=== PATIENT | male | born 1990 | race Two or more races ===

== ENCOUNTER 2019-11-16 16:58 | Emergency (ER) | payer BC ==
--- NOTE | 2019-11-16 17:50 | EDM.PDOC ---
<Kathleen Mijares - Last Filed: 11/16/19 17:45> ED HPI GENERAL MEDICAL PROBLEM - General Chief Complaint: Gastrointestinal Problem Stated Complaint: BLOOD IN STOOL Time Seen by Provider: 11/16/19 17:24 Source of Information: Reports: Patient History Limitations: Reports: No Limitations - History of Present Illness INITIAL COMMENTS - FREE TEXT/NARRATIVE: Patient is a pleasant 29-year-old male who presents to the ED today with complaints of abdominal cramping, bloating, and blood in his stool. He states that two days ago he developed abdominal pain, cramping, and heartburn. The next day he noted two episodes where he had bright red blood in his stool. He reports the stools were soft and he did not have to strain hard to have the bowel movement. Today he notes that he feels lightheaded and has no energy. Over the past three years he has had similar episodes of blood in his bowel movements, with the last being about a year ago. In 2017, he reports he had a similar episode of blood in his stools and was sent for a Colonoscopy, which was negative. He denies internal hemorrhoids, however does state that he thinks he has one external hemorrhoid, but does not think this is the source of the blood. Denies eating anything abnormal or out of the norm for him lately. Onset: Gradual Duration: Day(s): Location: Reports: Abdomen Quality: Reports: Other (cramping) Severity: Mild Improves with: Reports: None Worsens with: Reports: None - Related Data Allergies Allergy/AdvReac Type Severity Reaction Status Date / Time No Known Allergies Allergy Verified 11/16/19 17:17 Past Medical History Gastrointestinal History: Reports: Hemorrhoids - Past Surgical History GI Surgical History: Reports: Colonoscopy Social & Family History - Family History Family Medical History: Noncontributory - Tobacco Use Smoking Status *Q: Never Smoker - Caffeine Use Caffeine Use: Reports: Coffee, Energy Drinks, Soda - Recreational Drug Use Recreational Drug Use: No ED ROS GENERAL - Review of Systems Review Of Systems: See Below Constitutional: Reports: No Symptoms. Denies: Fever, Chills, Weakness Respiratory: Reports: No Symptoms. Denies: Shortness of Breath, Wheezing, Cough Cardiovascular: Reports: Lightheadedness. Denies: Chest Pain, Dyspnea on Exertion, Syncope GI/Abdominal: Reports: Abdominal Pain, Distension, Hematochezia. Denies: Diarrhea, Nausea, Vomiting : Reports: No Symptoms Skin: Reports: No Symptoms Neurological: Reports: No Symptoms Psychiatric: Reports: No Symptoms Hematologic/Lymphatic: Reports: No Symptoms ED EXAM, GI/ABD - Physical Exam Exam: See Below Exam Limited By: No Limitations General Appearance: Alert, WD/WN, No Apparent Distress Respiratory/Chest: No Respiratory Distress, Lungs Clear, Normal Breath Sounds, Chest Non-Tender Cardiovascular: Normal Peripheral Pulses, Regular Rate, Rhythm, No Edema, No Murmur GI/Abdominal Exam: Normal Bowel Sounds, Soft, Non-Tender, No Organomegaly Rectal (Males) Exam: Normal Rectal Tone, Hemorrhoids (one external- not bleeding at this time). No: Bloody Stool, Fecal Impaction, Perirectal Abscess, Rectal Fissure Neurological: Alert, Oriented, Normal Cognition, No Motor/Sensory Deficits Psychiatric: Normal Affect, Normal Mood Skin Exam: Warm, Dry, Intact, No Rash Course - Vital Signs Last Recorded V/S: Last Vital Signs Temp 98.1 F 11/16/19 17:13 Pulse 67 11/16/19 17:13 Resp 16 11/16/19 17:13 BP 124/80 11/16/19 17:13 Pulse Ox 100 11/16/19 17:13 - Orders/Labs/Meds Labs: Laboratory Tests 11/16/19 11/16/19 Range/Units 17:57 17:57 WBC 6.58 (4.23-9.07) K/mm3 RBC 4.32 L (4.63-6.08) M/mm3 Hgb 13.1 L (13.7-17.5) gm/dl Hct 40.1 (40.1-51.0) % MCV 92.8 H (79.0-92.2) fl MCH 30.3 (25.7-32.2) pg MCHC 32.7 (32.2-35.5) g/dl RDW Std Deviation 41.4 (35.1-43.9) fL Plt Count 298 (163-337) K/mm3 MPV 9.9 (9.4-12.3) fl Neut % (Auto) 56.9 (34.0-67.9) % Lymph % (Auto) 29.6 (21.8-53.1) % [place] % (Auto) 12.6 H (5.3-12.2) % Eos % (Auto) 0.6 L (0.8-7.0) Baso % (Auto) 0.3 (0.1-1.2) % Neut # (Auto) 3.74 (1.78-5.38) K/mm3 Lymph # (Auto) 1.95 (1.32-3.57) K/mm3 [place] # (Auto) 0.83 H (0.30-0.82) K/mm3 Eos # (Auto) 0.04 (0.04-0.54) K/mm3 Baso # (Auto) 0.02 (0.01-0.08) K/mm3 Sodium 138 (136-145) mEq/L Potassium 4.4 (3.5-5.1) mEq/L Chloride 100 (98-107) mEq/L Carbon Dioxide 30 (21-32) mEq/L Anion Gap 12.4 (5-15) BUN 15 (7-18) mg/dL Creatinine 0.8 (0.7-1.3) mg/dL Est Cr Clr Drug Dosing 129.68 mL/min Estimated GFR (MDRD) > 60 (>60) mL/min BUN/Creatinine Ratio 18.8 H (14-18) Glucose 100 (74-106) mg/dL Calcium 9.5 (8.5-10.1) mg/dL Total Bilirubin 0.5 (0.2-1.0) mg/dL AST 31 (15-37) U/L ALT 40 (16-63) U/L Alkaline Phosphatase 74 (46-116) U/L Total Protein 8.0 (6.4-8.2) g/dl Albumin 4.1 (3.4-5.0) g/dl Globulin 3.9 gm/dL Albumin/Globulin Ratio 1.1 (1-2) Lipase 85 (73-393) U/L Departure - Departure Disposition: Home, Self-Care 01 Clinical Impression: Abdominal pain, Rectal bleeding Hemorrhoid Qualifiers: Hemorrhoid type: other Qualified Code(s): K64.8 - Other hemorrhoids - Discharge Information Referrals: PCP,None [Primary Care Provider] - Marcela Andres PA-C [Physician Viscosity Inspector] - 1 Week Forms: ED Department Discharge Additional Instructions: Avoid any spicy food. Take pepcid 20mg daily for 2 weeks. Follow up with Marcela Andres within a week. Please return if you are worse. Sepsis Event Note - Evaluation Sepsis Screening Result: No Definite Risk - Focused Exam Vital Signs: Vital Signs Temp Pulse Resp BP Pulse Ox 11/16/19 17:13 98.1 F 67 16 124/80 100 Date Exam was Performed: 11/16/19 Time Exam was Performed: 17:45 <Enoc George - Last Filed: 11/16/19 18:43> Course - Re-Assessments/Exams Free Text/Narrative Re-Assessment/Exam: 11/16/19 18:39 I examined the patient myself and I agree with Kathleen's assessment and plan. I did a rectal and it was guiac negative. He did have a hemorrhoid but id did not appear to be thrombosed or bleeding. His WBC was normal. His Hgb was 13.1. His CMP looks good. His lipase is negative. I will discharge him home on some pepcid and follow up with Marcela Andres. Departure - Departure Time of Disposition: 18:45 Condition: Good - Discharge Information *PRESCRIPTION DRUG MONITORING PROGRAM REVIEWED*: Not Applicable *COPY OF PRESCRIPTION DRUG MONITORING REPORT IN PATIENT JINNY: Not Applicable Sepsis Event Note - Focused Exam Date Exam was Performed: 11/16/19 Time Exam was Performed: 18:39
== END 2019-11-16 18:47 | disposition home or self-care (01) ==
LOC: JD.ED 16:58
DX: K64.4 Residual hemorrhoidal skin tags (principal)
CPT/HCPCS: 36415; 80053; 83690; 85025; 99282; 99284

== ENCOUNTER 2022-01-29 09:11 | Emergency (ER) | payer BC ==
[2022-01-29] MEDS: Sodium Chloride 0.9% 10 ML Syringe FLUSH PRN ×2 (09:15→11:05)
[2022-01-29] MEDS ORDERED: Sodium Chloride 0.9% 10 ML Syringe FLUSH PRN (09:49)
[2022-01-29] MEDS ORDERED: Diatrizoate Meglumine/Diatrizoate Sodium 37% 120 ML Bottle PO ONE (10:06)
[2022-01-29] MEDS ORDERED: Iopamidol 612 MG/ML 100 ML Bottle IVPUSH ONE (10:06)
== END 2022-01-29 12:25 | disposition home or self-care (01) ==
LOC: JD.ED 09:11
DX: K62.5 Hemorrhage of anus and rectum (principal); Z79.899 Other long term (current) drug therapy; Z86.16 Personal history of COVID-19
CPT/HCPCS: 36415; 74177; 80053; 83690; 85025; 85610; 85730; 99284; J3490; Q9963; Q9967

== ENCOUNTER 2024-03-24 06:40 | Day surgery (SDC) | payer BC ==
[~2024-03-24 06:40] MED LIST: Lactated Ringers 1,000 ML IV SCH; Sodium Chloride 0.9% 10 ML Syringe FLUSH PRN; Sodium Chloride 0.9% 10 ML Syringe FLUSH SCH
[2024-03-24] MEDS: Lactated Ringers 1,000 ML IV SCH (07:00)
[2024-03-24] MEDS ORDERED: Propofol 200 MG/20 ML SDV ONE (07:07)
[2024-03-24] MEDS ORDERED: Midazolam 1 MG/ML 2 ML SDV ONE (07:07)
[2024-03-24] MEDS ORDERED: fentaNYL 100 MCG/2 ML SDV ONE (07:07)
== END 2024-03-24 08:40 | disposition home or self-care (01) ==
LOC: JD.SDS 06:40
PROVIDERS: ATTEND Surgery
DX: K29.51 Unspecified chronic gastritis with bleeding (principal); K31.7 Polyp of stomach and duodenum; K20.90 Esophagitis, unspecified without bleeding; K64.4 Residual hemorrhoidal skin tags; Z87.891 Personal history of nicotine dependence
CPT/HCPCS: 43239; 45380; J2250; J2704; J3010; J7120; 00813

== ENCOUNTER 2024-05-04 00:11 | Emergency (ER) | payer BC ==
[2024-05-04] MEDS: Acetaminophen 325 MG Tab PO ONE (00:56)
[2024-05-04] MEDS: Diphtheria,Pertussis(Acell),Tetanus Vaccine 0.5 ML Syringe IM ONE (01:06)
[2024-05-04] MEDS ORDERED: Lidocaine 1% 20 ML MDV ONE (01:48)
== END 2024-05-04 02:00 | disposition home or self-care (01) ==
LOC: JD.ED 00:11
DX: S61.411A Laceration without foreign body of right hand, initial encounter (principal); Z86.16 Personal history of COVID-19; Z23 Encounter for immunization; W25.XXXA Contact with sharp glass, initial encounter
CPT/HCPCS: 12002; 73130; 90471; 90715; 99283; A9270

== ENCOUNTER 2025-08-14 15:02 | Emergency (ER) | payer BC ==
[2025-08-14] MEDS ORDERED: Sodium Chloride 0.9% 10 ML Syringe FLUSH PRN (15:30)
[2025-08-14 16:01] LABS: BASOPHILS ABSOLUTE AUTO 0.1 K/mm3 (0.0-0.2); BASOPHILS PERCENT AUTO 0.4 % (0.0-1.0); EOSINOPHILS ABSOLUTE AUTO 0.0 K/mm3 (0.0-0.4); EOSINOPHILS PERCENT AUTO 0.0 % (0.0-6.0); IMMATURE GRAN ABSOLUTE AUTO 0.08 K/mm3 (0.00-0.05); IMMATURE GRAN PERCENT AUTO 0.6 % (0.0-0.4); LYMPHOCYTES ABSOLUTE AUTO 1.3 K/mm3 (1.0-4.8); LYMPHOCYTES PERCENT AUTO 9.2 % (24.0-44.0); MEAN PLATELET VOLUME 9.6 fl (9.4-12.4); MONOCYTES ABSOLUTE AUTO 0.9 K/mm3 (0.0-0.8); MONOCYTES PERCENT AUTO 6.3 % (0.0-8.0); NEUTROPHILS ABSOLUTE AUTO 11.7 K/mm3 (1.8-7.7); NEUTROPHILS PERCENT AUTO 83.5 % (41.0-71.0); NRBC ABSOLUTE 0.00 (0.00-0.02); NRBC PERCENT 0.0 % (0.0-0.2); PLATELET COUNT,PLT 363 K/mm3 (150-400); RED BLOOD CELL COUNT 4.88 M/mm3 (4.52-5.90); WHITE BLOOD CELL COUNT,WBC 13.98 K/mm3 (3.9-11.3)
[2025-08-14 16:38] LABS: A/G RATIO 1.2 (1-2); ALANINE AMINOTRANSFERASE,ALT 53.0 U/L (16-63); ASPARTATE AMNIOTRANSFERASE,AST 33.0 U/L (15-37); BILIRUBIN TOTAL 0.5 mg/dL (0.2-1.0); BLOOD UREA NITROGEN,BUN 14.0 mg/dL (7-18); CARBON DIOXIDE,CO2 29.0 mEq/L (21-32); CHLORIDE,CL 100.0 mEq/L (98-107); CREATININE 0.9 mg/dL (0.7-1.3); EST CRCL DRUG DOSING (CG) 109.15 mL/min; ESTIMATED GFR 116.0 mL/min (>60); GLUCOSE RANDOM 104.0 mg/dL (70-99); POTASSIUM,K 4.2 mEq/L (3.5-5.1); PROTEIN TOTAL,TP 9.1 g/dl (6.4-8.2); SODIUM,NA 141.0 mEq/L (136-145)
[2025-08-14 17:47] LABS: APPEARANCE,URINE CLEAR (Clear); GLUCOSE,URINE NEGATIVE (Negative); OCCULT BLOOD,URINE NEGATIVE (Negative)
[2025-08-14 18:02] LABS: EPITHELIAL CELLS,URINE 0-5 /hpf (0-5)
== END 2025-08-14 19:05 | disposition home or self-care (01) ==
LOC: JD.ED 15:02
DX: R25.2 Cramp and spasm (principal); Z86.16 Personal history of COVID-19
CPT/HCPCS: 36415; 71045; 80053; 80307; 81001; 83735; 84484; 85025; 87428; 93005; 96360; 96361; 99285; A9270; J7030